=== PATIENT | male | born 1995 | race Asian ===

== ENCOUNTER 2016-10-01 20:27 | Emergency (ER) | payer OTHER ==
[2016-10-01 20:41] VITALS: O2SAT 97
[2016-10-01] MEDS ORDERED: NS 1,000 ML IV ONE (21:20)
[2016-10-01] MEDS ORDERED: ONDANSETRON 4 MG/2 ML VIAL IVP ONE (21:20)
[2016-10-01 22:00] LABS: % IMMATURE GRANULYOCYTES 0.4 % (0.0-1.1); ABSOLUTE IMMATURE GRANULOCYTES 0.04 10^3/uL (0.00-0.10); ADD DIFF? NO; ADD MORPH? NO; ADD SCAN? NO; ATYPICAL LYMPHOCYTE FLAG 10 (0-99); FRAGMENT RBC FLAG 0 (0-99); HEMATOCRIT 47.8 % (40.0-51.0); HEMOGLOBIN 16.7 g/dL (13.7-17.5); LEFT SHIFT FLG 0 (0-99); LIPEMIA HEMOLYSIS FLAG 90 (0-99); MEAN CELL HEMOGLOBIN 30.6 pg (27.9-34.1); MEAN CELL HEMOGLOBIN CONCENTR. 34.9 g/dL (32.4-36.7); MEAN CELL VOLUME 87.7 fL (81.5-99.8); MEAN PLATELET VOLUME 12.8 fL (8.7-11.7); PLATELET CLUMPS FLAG 20 (0-99); PLATELET COUNT 175 10^3/uL (150-400); RED BLOOD CELL COUNT 5.45 10^6/uL (4.40-6.38); RED CELL DISTRIBUTION WIDTH 12.2 % (11.5-15.2)
[2016-10-01 22:22] LABS: ALANINE AMINOTRANSFERASE 48 IU/L (21-72); ALBUMIN 4.5 g/dL (3.5-5.0); ALKALINE PHOSPHATASE 62 IU/L (38-126); ANION GAP 11 mEq/L (8-16); ASPARTATE AMINOTRANSFERASE 28 IU/L (17-59); BILIRUBIN,TOTAL 0.7 mg/dL (0.1-1.4); BILIRUBIN-CONJUGATED 0.5 mg/dL (0.0-0.5); BILIRUBIN-UNCONJUGATED 0.2 mg/dL (0.0-1.1); CALCIUM 9.3 mg/dL (8.5-10.4); CARBON DIOXIDE 23 mEq/l (22-31); CHLORIDE 104 mEq/L (97-110); CREATININE 0.9 mg/dL (0.7-1.3); GLOMERULAR FILTRATION RATE > 60; GLUCOSE 93 mg/dL (70-100); POTASSIUM 4.1 mEq/L (3.5-5.2); SODIUM 138 mEq/L (134-144); TOTAL PROTEIN 7.4 g/dL (6.3-8.2)
--- NOTE | 2016-10-01 22:34 | EDPHY ---
H & P Stated Complaint: LLQ pain- nausea Time Seen by Provider: 10/01/16 21:09 HPI/ROS: Chief complaint: Abdominal pain History of present illness: This is a 20-year-old male who presents to the emergency department for evaluation of abdominal pain. Patient reports the onset of symptoms over the last 1-2 hours. He describes diffuse pain. It is intermittent in nature. He has had associated nausea but no vomiting. He denies precipitating factors. He denies other associated signs or symptoms including no fevers, no diarrhea or constipation, no urinary symptoms. Patient states symptoms have currently resolved and he is feeling well. Review of systems: A 10 point review of systems was obtained and other than described above was negative - Personal History Current Tetanus/Diphtheria Vaccine: Unsure Current Tetanus Diphtheria and Acellular Pertussis (TDAP): Unsure - Medical/Surgical History Hx Asthma: No Hx Chronic Respiratory Disease: No Hx Diabetes: No Hx Cardiac Disease: No Hx Renal Disease: No Hx Cirrhosis: No Hx Alcoholism: No Hx HIV/AIDS: No Hx Splenectomy or Spleen Trauma: No Other PMH: Tonisllectomy, childhood asthma - Social History Smoking Status: Never smoked - Physical Exam Exam: General Appearance: Alert, nontoxic. Eyes: Pupils equal and round no pallor or injection. ENT, Mouth: Mucous membranes moist. Respiratory: There are no retractions, lungs are clear to auscultation. Cardiovascular: Regular rate and rhythm. Gastrointestinal: Abdomen is soft and nontender, no masses, bowel sounds normal. Neurological: Alert and oriented. Strength and sensation intact and symmetrical. Skin: Warm and dry, no rashes. Musculoskeletal: Neck is supple nontender. Extremities are symmetrical, full range of motion. Psychiatric: Patient is oriented X 3, there is no agitation. Constitutional: Initial Vital Signs Temperature (C) 36.7 C 10/01/16 20:37 Heart Rate 69 10/01/16 20:37 Respiratory Rate 16 10/01/16 20:37 Blood Pressure 139/84 H 10/01/16 20:37 O2 Sat (%) 97 10/01/16 20:37 O2 Delivery Mode Room Air Allergies/Adverse Reactions: No Known Allergies Allergy (Unverified 10/01/16 20:42) Home Medications: Medication Instructions Recorded NK [No Known Home Meds] 10/01/16 Medical Decision Making ED Course/Re-evaluation: Patient seen under the supervision of my secondary supervising physician Dr. Saadia Ruano. Patient presents to the emergency department with abdominal pain and nausea. On presentation he is asymptomatic. He is nontoxic. Vital signs are stable. Abdominal exam is benign. Blood studies unremarkable. At this time given the patient's asymptomatic with an unremarkable workup I do not believe further evaluation is necessitated. Patient is discharged home. Home care is discussed. Strict return precautions are given. Patient voiced understanding and agreement with plan. Differential Diagnosis: Included but not limited to gastritis, gastroenteritis, biliary tract disease, pancreatitis, colitis, appendicitis, urinary tract disease, bowel obstruction - Data Points Laboratory Results: Laboratory Results 10/01/16 21:35 10/01/16 21:35 Medications Given: Discontinued Medications Sodium Chloride (Ns) 1,000 mls @ 0 mls/hr IV ONCE ONE PRN Reason: Wide Open Stop: 10/01/16 21:21 Last Admin: 10/01/16 21:38 Dose: 1,000 mls Ondansetron HCl (Zofran) 4 mg IVP EDNOW ONE Stop: 10/01/16 21:21 Last Admin: 10/01/16 21:38 Dose: 4 mg Departure - Departure Disposition: Home, Routine, Self-Care Clinical Impression: Abdominal pain Qualifiers: Abdominal location: unspecified location Qualified Code(s): R10.9 - Unspecified abdominal pain Condition: Good Instructions: Acute Abdominal Pain (ED) Additional Instructions: Follow-up with a primary care doctor for recheck If symptoms worsen or new symptoms develop return to the emergency department for recheck Referrals: NONE *PRIMARY CARE P,. [Primary Care Provider] - As per Instructions
[2016-10-01 22:45] VITALS: BP 134/73; PULSE 70; RESP 14; TEMP 98.4
== END 2016-10-01 22:44 | disposition home or self-care (01) ==
DX: R10.9 Unspecified abdominal pain (principal); J45.909 Unspecified asthma, uncomplicated
CPT/HCPCS: 96374; J2405

== ENCOUNTER 2017-11-26 07:54 | Emergency (ER) | payer OTHER ==
[2017-11-26] MEDS ORDERED: IBUPROFEN 600 MG TAB PO ONE (08:05)
--- NOTE | 2017-11-26 08:09 | EDPHY ---
H & P Time Seen by Provider: 11/26/17 07:59 HPI/ROS: CHIEF COMPLAINT: Central chest pain HISTORY OF PRESENT ILLNESS: Patient says he was out partying with friends and dancing until 4:00 a.m. And then came home and slept on the couch. 15 min prior to arrival he awakened with central chest pain which is moderate and does not radiate. Associated with some tightness in both arms and is worse when takes a deep breath. No coughing or fever or leg swelling or hemoptysis or recent injury or trauma. No burping belching or sour taste in his throat or mouth. REVIEW OF SYSTEMS: Eye: no change in vision ENT: no sore throat Cardiac: HPI Pulmonary: no cough or SOB Abdomen: no vomiting, diarrhea, abdominal pain Musculoskeletal: no back pain Skin: no rash Neuro: no headache Constitutional: no fever : no urinary symptoms A comprehensive 10 point review of systems is otherwise negative aside from elements mentioned in the history of present illness. PAST MEDICAL HISTORY: Negative. Specifically no diabetes or hypertension, no history of venous thromboembolism. Family history: Negative for venous thromboembolism or premature coronary disease Social history: No recent significantly long travel or immobilization, did have airplane flight to [place] on November 17. No cocaine or other stimulant drugs last night. General Appearance: Alert and conversant, cooperative. Eyes: No scleral icterus. ENT, Mouth: Normal mucous membranes. Respiratory: No wheezing, breath sounds equal, lungs are clear to auscultation. No crepitus. Slightly decreased breath sounds from splinting. Cardiovascular: Regular rate and rhythm. No murmur. Gastrointestinal: Abdomen is soft and non tender. Neurological: Alert, face symmetric, normal motor and sensory in extremities. Skin: Warm and dry, no rashes. Musculoskeletal: No peripheral edema. No calf tenderness. Legs are symmetric. Psychiatric: Not agitated. Emergency Department course/MDM: EKG and chest x-ray, ibuprofen 600 mg. More likely to be muscular or inflammatory than cardiac. PERC negative for pulmonary embolism. 845: Normal EKG and chest x-ray reviewed with the patient. Symptomatic treatment. Smoking Status: Never smoked Constitutional: Initial Vital Signs Temperature (C) 36.6 C 11/26/17 07:55 Heart Rate 64 11/26/17 07:55 Respiratory Rate 18 11/26/17 07:55 Blood Pressure 123/78 H 11/26/17 07:55 O2 Sat (%) 97 11/26/17 07:55 O2 Delivery Mode Room Air Allergies/Adverse Reactions: No Known Allergies Allergy (Verified 11/26/17 07:55) Home Medications: Medication Instructions Recorded NK [No Known Home Meds] 10/01/16 Medical Decision Making - Diagnostics EKG Interpretation: 12-lead EKG interpreted by me; official reading is in trace master. My interpretation is sinus rhythm rate 64 with no ischemic changes. Imaging Results: Chest x-ray negative personally interpreted, normal, discussed with Young gann. Imaging: Discussed imaging studies w/ equine internship Radiologist, I viewed and interpreted images myself Differential Diagnosis: Differential diagnosis considered for chest pain including but not limited to myocardial ischemia, aortic dissection, pericarditis, pulmonary embolus, chest wall pain, pleural inflammation and pulmonary infectious causes. - Data Points Medications Given: Discontinued Medications Ibuprofen (Motrin) 600 mg PO EDNOW ONE Stop: 11/26/17 08:06 Last Admin: 11/26/17 08:13 Dose: 600 mg Departure - Departure Disposition: Home, Routine, Self-Care Clinical Impression: Chest pain Qualifiers: Chest pain type: chest pain on breathing Qualified Code(s): R07.1 - Chest pain on breathing Condition: Good Instructions: Chest Pain (ED) Referrals: Cele Mina MD [Medical Doctor] - As per Instructions
--- NOTE | 2017-11-26 08:10 | CPEKG ---
Heart Rate: 64 RR Interval: 938 P-R Interval: 156 QRSD Interval: 94 QT Interval: 392 QTC Interval: 405 P Montgomery: 69 QRS Montgomery: 75 T Wave Montgomery: 58 EKG Severity - NORMAL ECG - EKG Impression: SINUS RHYTHM Electronically Signed By: Satya Anna 26-Nov-2017 08:13:15
[2017-11-26 08:54] VITALS: BP 131/85
== END 2017-11-26 08:54 | disposition home or self-care (01) ==
DX: R07.1 Chest pain on breathing (principal)